=== PATIENT | male | born 1940 | race Caucasian/White ===

== ENCOUNTER 2018-06-28 10:06 | Emergency (ER) | payer MEDICARE, OTHER ==
[2018-06-28 11:24] LABS: Absolute Lymphocytes (CBC) 1.6 K/uL (0.7-4.9); Absolute Monocytes 0.5 K/uL (0.1-1.3); Absolute Neutrophil 5.9 K/uL (1.8-8.0); Basophils % 0.5 % (0-1.3); Hematocrit 46.7 % (39.6-49.0); Lymphocytes % 19.4 % (15.3-44.8); MCH 33.7 pg (27.0-35.0); MCV 98.2 fL (80-100); MPV 9.3 fL (7.6-11.3); Monocytes % 5.9 % (3.3-12.3); RBC Red Blood Cell Count 4.76 M/uL (4.33-5.43)
[2018-06-28 11:37] LABS: Protime INR 1.01
[2018-06-28 11:43] LABS: ALT/SGPT 34 U/L (12-78); AST/SGOT 25 U/L (15-37); Albumin 3.7 g/dL (3.4-5.0); Alkaline Phosphatase 86 U/L (45-117); BUN Blood Urea Nitrogen 23 mg/dL (7-18); Bicarbonate 25 mmol/L (21-32); Bilirubin Direct 0.2 mg/dL (0-0.2); Bilirubin Total 0.5 mg/dL (0.2-1.0); Glucose Level 95 mg/dL (74-106); Magnesium 2.1 mg/dL (1.8-2.4); NT PRO-BNP 1420 pg/mL (<450); Potassium 5.1 mmol/L (3.5-5.1); Protein, Total 7.6 g/dL (6.4-8.2); Sodium Level 135 mmol/L (136-145); Troponin (Emerg Dept Use Only) < 0.02 ng/mL (0.0-0.045)
--- NOTE | 2018-06-28 11:44 | EKG ---
Test Date: 2018-06-28 Test Time: 10:53:54 Mechanical Oxidizer: DAVID MEASUREMENT RESULTS: Intervals: Rate: 61 NM: 216 QRSD: 104 QT: 440 QTc: 442 Blanchard: P: 22 NM: 216 QRS: 7 T: 59 INTERPRETIVE STATEMENTS: Sinus rhythm with 1st degree AV block Otherwise normal ECG Compared to ECG 01/17/2006 17:31:56 First degree AV block now present Electronically Signed On 06-28-18 11:43:53 COATER OPERATOR by Steve Duarte
[2018-06-28] MEDS ORDERED: AMLODIPINE 5 MG TAB ONE (12:04)
[2018-06-28] MEDS ORDERED: cloNIDine HCl 0.1 MG TAB ONE (12:04)
--- NOTE | 2018-06-28 13:52 | EDPHYS ---
Physician Documentation [facility] Name: Burton Zamora Age: 77 yrs Sex: Male : 1940 Arrival Date: 06/28/2018 Time: 10:09 Bed 25 Private MD: Jovon Early E ED Physician Tal Rodriguez HPI: 06/28 11:02 This 77 yrs old Male presents to ER via Ambulatory with complaints of High jmm Blood Pressure. 11:02 The patient has elevated blood pressure and discovered this at home. Onset: The jmm symptoms/episode began/occurred gradually, 1 week(s) ago. Modifying factors:. Associated signs and symptoms: Pertinent negatives: chest pain, dizziness, headache, weakness. This is a 77 year old male with a history of htn that presents to the ED with elevated blood pressure over 200 systolic over the past week. Patient states he takes 50 mg of metoprolol daily which has not decreased his blood pressure, patient denies chest pain, denies shortness of breath. Admits to ringing in his ears when his blood pressure elevates. Denies weakness. . 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 - Social history:: Smoking status: Patient/guardian denies using tobacco, Patient uses alcohol, admits to "couple of beers" a day. - Ebola Screening: : Patient negative for fever greater than or equal to 101.5 degrees Fahrenheit, and additional compatible Ebola Virus Disease symptoms Patient denies exposure to infectious person Patient denies travel to an Ebola-affected area in the 21 days before illness onset No symptoms or risks identified at this time. ROS: 11:02 Constitutional: Negative for fever, chills, and weight loss, Eyes: Negative for injury, jmm pain, redness, and discharge, Cardiovascular: Negative for chest pain, palpitations, and edema, Respiratory: Negative for shortness of breath, cough, wheezing, and pleuritic chest pain, Abdomen/GI: Negative for abdominal pain, nausea, vomiting, diarrhea, and constipation, Neuro: Negative for headache, weakness, numbness, tingling, and seizure. 11:02 All other systems are negative. Exam: 11:02 Head/Face: atraumatic. Eyes: EOMI, no conjunctival erythema appreciated ENT: Moist jmm Mucus Membranes Chest/axilla: Normal chest wall appearance and motion. 11:02 Constitutional: The patient appears in no acute distress, alert, awake. 11:02 Cardiovascular: Rate: normal, Rhythm: regular, Pulses: no pulse deficits are appreciated. 11:02 Respiratory: the patient does not display signs of respiratory distress, Respirations: normal, Breath sounds: are clear throughout. 11:02 Abdomen/GI: Inspection: abdomen appears normal, Bowel sounds: normal, Palpation: abdomen is soft and non-tender. 11:02 Back: ROM is normal. 11:02 Musculoskeletal/extremity: ROM: intact in all extremities. 11:02 Skin: Appearance: Color: normal in color. 11:02 Neuro: Orientation: is normal, Mentation: is normal, Memory: is normal. 11:02 Psych: Behavior/mood is pleasant, cooperative. Vital Signs: 10:23 BP 211 / 96; Pulse 58; Resp 19; Temp 97.9; Pulse Ox 99% on R/A; Weight 79.38 kg; Height aj 5 ft. 9 in. (175.26 cm); 11:15 BP 228 / 90; Pulse 56; Resp 18; Temp 97.9; Pulse Ox 99% on R/A; sg 11:50 BP 214 / 82; Pulse 44; Resp 16; Pulse Ox 100% on R/A; sg 12:39 BP 219 / 73; Pulse 47; Resp 17; Pulse Ox 99% on R/A; Pain 0/10; sg 13:44 BP 189 / 77; Pulse 48; Resp 17; Pulse Ox 100% on R/A; sg 10:23 Body Mass Index 25.84 (79.38 kg, 175.26 cm) aj MDM: 10:56 Patient medically screened. [facility] 13:50 Data reviewed: vital signs, nurses notes. Counseling: I had a detailed discussion with betsy the patient and/or guardian regarding: the historical points, exam findings, and any diagnostic results supporting the discharge/admit diagnosis, lab results, the need for outpatient follow up, to return to the emergency department if symptoms worsen or persist or if there are any questions or concerns that arise at home. 13:50 Data interpreted: Pulse oximetry: on room air is 100 %. Interpretation: normal. [facility] 13:50 ED course: Patient's neuro exam is normal. I do not suspect CVA. Patient is encouraged [facility] to follow up with PCP for readjustment of bp medications. Patient and family understood and agrees with the plan of care. . 06/28 10:57 Order name: Basic Metabolic Panel; Complete Time: 11:45 [facility] 06/28 10:57 Order name: CBC with Diff; Complete Time: 11:34 [facility] 06/28 10:57 Order name: LFT's; Complete Time: 11:45 [facility] 06/28 10:57 Order name: Magnesium; Complete Time: 11:45 [facility] 06/28 10:57 Order name: NT PRO-BNP; Complete Time: 11:45 [facility] 06/28 10:57 Order name: PT-INR; Complete Time: 11:40 [facility] 06/28 10:57 Order name: Troponin (emerg Dept Use Only); Complete Time: 11:45 [facility] 06/28 10:57 Order name: EKG; Complete Time: 10:58 [facility] 06/28 10:57 Order name: Cardiac monitoring; Complete Time: 11:14 [facility] 06/28 10:57 Order name: EKG - Nurse/Tech; Complete Time: 11:14 [facility] 06/28 10:57 Order name: IV Saline Lock; Complete Time: 11:14 [facility] 06/28 10:57 Order name: Labs collected and sent; Complete Time: 11:14 [facility] 06/28 10:57 Order name: O2 Per Protocol; Complete Time: 11:14 [facility] 06/28 10:57 Order name: O2 Sat Monitoring; Complete Time: 11:14 [facility] 06/28 13:18 Order name: Vital Signs; Complete Time: 13:43 [facility] Administered Medications: 12:18 Drug: Norvasc 10 mg Route: PO; sg 12:19 Drug: cloNIDine 0.1 mg Route: PO; sg Disposition: 16:59 Co-signature as Attending Physician, Tal Rodriguez MD I agree with the assessment and chidi plan of care. Disposition: 06/28/18 13:51 Discharged to Home. Impression: Hypertension. - Condition is Stable. - Discharge Instructions: Hypertension. - Prescriptions for Norvasc 5 mg Oral Tablet - take 1 tablet by ORAL route once daily; 20 tablet. - Medication Reconciliation Form, Thank You Letter, Antibiotic Education, Prescription Opioid Use form. - Follow up: Jovon Early MD; When: 1 - 2 days; Reason: Recheck today's complaints, Continuance of care, Re-evaluation by your physician. Signatures: Dispatcher [employer] EDMS Kris Castro RN RN sg Myers, Amanda, RN RN aj Anderson, Corey, MD MD cha Mickail, Joel, PA PA jmm Williams, Irene, RN RN iw Corrections: (The following items were deleted from the chart) 13:57 13:51 06/28/2018 13:51 Discharged to Home. Impression: Hypertension. Condition is iw Stable. Forms are Medication Reconciliation Form, Thank You Letter, Antibiotic Education, Prescription Opioid Use. Follow up: Jovon Early; When: 1 - 2 days; Reason: Recheck today's complaints, Continuance of care, Re-evaluation by your physician. betsy
--- NOTE | 2018-06-28 13:52 | ER ---
Nurse's Notes [facility] Name: Burton Zamora Age: 77 yrs Sex: Male : 1940 Arrival Date: 06/28/2018 Time: 10:09 Bed 25 Private MD: Jovon Early E Diagnosis: Hypertension Presentation: 06/28 10:18 Presenting complaint: Patient states: "My blood pressure has been high for the past aj week. I couldn't get a hold of my doctor. I take blood pressure medicine but I only take it when my pressure is high." Patient reports tingling all over body for 1 week. Denies pain. Reports being stung by a wasp on Tuesday and fears this may be related. Transition of care: patient was not received from another setting of care. Onset of symptoms was June 21, 2018. Risk Assessment: Do you want to hurt yourself or someone else? Patient reports no desire to harm self or others. Initial Sepsis Screen: Does the patient meet any 2 criteria? No. Patient's initial sepsis screen is negative. Does the patient have a suspected source of infection? No. Patient's initial sepsis screen is negative. Care prior to arrival: None. 10:18 Method Of Arrival: Ambulatory aj 10:18 Acuity: SULEIMAN 2 aj Triage Assessment: 10:23 General: Appears in no apparent distress. comfortable, Behavior is cooperative, aj appropriate for age, anxious. Pain: Denies pain. Neuro: Level of Consciousness is awake, alert, obeys commands, Oriented to person, place, time, situation, Appropriate for age. Respiratory: Airway is patent Respiratory effort is even, unlabored, Respiratory pattern is regular, symmetrical. Derm: Skin is intact, is healthy with good turgor, Skin is pink, warm \\T\\ dry. normal. 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 - Social history:: Smoking status: Patient/guardian denies using tobacco, Patient uses alcohol, admits to "couple of beers" a day. - Ebola Screening: : Patient negative for fever greater than or equal to 101.5 degrees Fahrenheit, and additional compatible Ebola Virus Disease symptoms Patient denies exposure to infectious person Patient denies travel to an Ebola-affected area in the 21 days before illness onset No symptoms or risks identified at this time. Screenin:15 Abuse screen: Denies threats or abuse. Denies injuries from another. Nutritional sg screening: No deficits noted. Tuberculosis screening: No symptoms or risk factors identified. Never had TB. Fall Risk None identified. Assessment: 11:15 General: Appears in no apparent distress. comfortable, well groomed, well developed, sg well nourished, Behavior is calm, cooperative, appropriate for age. Pain: Denies pain. Neuro: No deficits noted. Cardiovascular: Heart tones S1 S2 present Capillary refill is brisk in bilateral fingers Patient's skin is warm and dry. Chest pain is denied. Respiratory: Airway is patent Respiratory effort is even, unlabored, Respiratory pattern is regular, symmetrical, Breath sounds are clear. GI: Abdomen is round non-distended, Bowel sounds present X 4 quads. : No signs and/or symptoms were reported regarding the genitourinary system. EENT: No signs and/or symptoms were reported regarding the EENT system. Derm: Skin is pink, warm \\T\\ dry. Musculoskeletal: No signs and/or symptoms reported regarding the musculoskeletal system. Vital Signs: 10:23 BP 211 / 96; Pulse 58; Resp 19; Temp 97.9; Pulse Ox 99% on R/A; Weight 79.38 kg; Height aj 5 ft. 9 in. (175.26 cm); 11:15 BP 228 / 90; Pulse 56; Resp 18; Temp 97.9; Pulse Ox 99% on R/A; sg 11:50 BP 214 / 82; Pulse 44; Resp 16; Pulse Ox 100% on R/A; sg 12:39 BP 219 / 73; Pulse 47; Resp 17; Pulse Ox 99% on R/A; Pain 0/10; sg 13:44 BP 189 / 77; Pulse 48; Resp 17; Pulse Ox 100% on R/A; sg 10:23 Body Mass Index 25.84 (79.38 kg, 175.26 cm) aj ED Course: 10:09 Patient arrived in ED. mr 10:10 Jovon Early MD is Private Physician. mr 10:20 Triage completed. aj 10:23 Arm band placed on left wrist. Patient placed in waiting room, Patient notified of wait aj time. 10:39 Ernesto Mahoney PA is PHCP. [facility] 10:39 Tal Rodriguez MD is Attending Physician. [facility] 11:00 EKG done, by field technical assistant. reviewed by Tal Rodriguez MD. at1 11:14 Kris Castro, RN is Primary Nurse. sg 11:14 Initial lab(s) drawn, by me, sent to lab. Missed attempt(s): 20 gauge in left sg antecubital area. Bleeding controlled, band aid applied, catheter tip intact. 11:15 Patient has correct armband on for positive identification. Bed in low position. Call sg light in reach. Side rails up X2. bill of materials clerk on. Pulse ox on. NIBP on. Warm blanket given. Head of bed. 11:15 No provider procedures requiring assistance completed. Patient did not have IV access sg during this emergency room visit. 13:50 Jovon Early MD is Referral Physician. [facility] Administered Medications: 12:18 Drug: Norvasc 10 mg Route: PO; sg 12:19 Drug: cloNIDine 0.1 mg Route: PO; sg Outcome: 13:51 Discharge ordered by MD. [facility] 13:52 Discharged to home ambulatory, with family. sg 13:52 Condition: good 13:52 Discharge instructions given to patient, Instructed on discharge instructions, follow up and referral plans. medication usage, safety practices, Demonstrated understanding of instructions, follow-up care, medications, Prescriptions given X 1. 13:57 Patient left the ED. iw Signatures: Kris Castro, Julisa Pruett RN, RN Ernesto Shah PA PA [facility] Shaikh, Nati Neva Merino, RN Julisa Kingston, fiber machine tender EKG Tat1
== END 2018-06-28 13:57 | disposition home or self-care (01) ==
LOC: ER 10:06
DX: I10 Essential (primary) hypertension (principal); Z95.1 Presence of aortocoronary bypass graft
CPT/HCPCS: 36415; 80048; 80076; 83735; 83880; 84484; 85025; 85610; 93005; 99284